=== PATIENT | male | born 1995 | race Caucasian/White ===

== ENCOUNTER 2021-07-06 22:35 | Emergency (ER) | payer OTHER ==
[~2021-07-06] VITALS: Ht 167.6 cm; Wt 102.1 kg
[~2021-07-06 22:35] MED LIST: AMPH10TA PO; TYLENOL
[2021-07-06 23:09] VITALS: BP 143/66
[2021-07-07 00:25] LABS: APPEARANCE,URINE CLOUDY (CLEAR); BILIRUBIN,URINE NEGATIVE (NEGATIVE); BLOOD, URINE 1+ (NEGATIVE); COLOR,URINE YELLOW (YELLOW); LEUKOCYTE ESTERASE ,URINE TRACE (NEGATIVE); NITRITE, URINE NEGATIVE (NEGATIVE); UGLUCOSE NEGATIVE (NEGATIVE)
[2021-07-07 00:30] LABS: RBC,URINE 0-5 /HPF (0-5); WBC,URINE TOO MANY TO COUNT /HPF (0-5)
--- NOTE | 2021-07-07 00:45 | NUR ---
PT TAKEN TO BED #3
--- NOTE | 2021-07-07 01:00 | NUR ---
COVERING PRIMARY RN FOR LUNCH RELIEF. SEE COMPLETE ASSESSMENT.
[2021-07-07] MEDS ORDERED: cefTRIAXone 500 MG in LIDOCAINE MPF 1% 1 ML IM ONE (02:00)
[2021-07-07] MEDS ORDERED: DOXY100C9 PO (02:04)
[2021-07-07] MEDS ORDERED: cefTRIAXone 500 MG VIAL ONE (02:06)
[2021-07-07] MEDS ORDERED: LIDOCAINE MPF 1% 5 ML ONE (02:06)
[2021-07-07 02:17] VITALS: BP 137/84
--- NOTE | 2021-07-09 18:56 | NUR ---
LATE ENTRY. LAB RESULTS CAME BACK POSITIVE FOR GONORRHOEAE. PT WAS GIVEN ROCEPHIN 500MG HERE WITH RX OF DOXYCYCLINE 100MG. DR SAID STATED THAT THIS IS THE RIGHT TREATMENT WITH NO FURTHER RX NEEDED. SPOKE WITH PT DIRECTLY, ADVISED PT TO INFORM PARTNERS TO GET TREATED.
== END 2021-07-07 02:17 | disposition home or self-care (01) ==
LOC: MED 22:35
DX: R30.0 Dysuria (principal); R36.9 Urethral discharge, unspecified; Z79.899 Other long term (current) drug therapy
CPT/HCPCS: 36415; 81001; 87086; 96372; 99283; J0696; J2001; 87491